=== PATIENT | female | born 1990 | race Caucasian/White ===

== ENCOUNTER 2016-10-17 13:40 | Emergency (ER) | payer MEDICAID ==
[2016-10-17 13:52] VITALS: BP 128/84; PULSE 78; RESP 16; TEMP 99; O2SAT 98
--- NOTE | 2016-10-17 15:17 | UCPHY ---
H & P Time Seen by Provider: 10/17/16 14:54 Patient Type: New HPI/ROS: CHIEF COMPLAINT: Vomiting, diarrhea HISTORY OF PRESENT ILLNESS: 26-year-old female presents to urgent care by private vehicle complaining of multiple episodes of vomiting and diarrhea since early Wednesday morning. Patient denies melena. Denies blood in her stool or blood in the emesis. Denies fevers or chills. No known ill contacts. No known contaminated food or water. No chest pain or difficulty breathing. No abdominal pain. Patient has been urinating normally today. She feels better today. She has not vomited since 6:00 a.m. today. She is requesting a note to be able to go back to work tomorrow. REVIEW OF SYSTEMS: Constitutional: No fever, no chills. Eyes: No double or blurry vision. ENT: No sore throat. Respiratory: No cough, no shortness of breath. Cardiac: No chest pain. Gastrointestinal: Vomiting, diarrhea. No abdominal pain. Genitourinary: No dysuria. Musculoskeletal: No neck or back pain. Skin: No rashes. Neurological: No headache. Past Medical/Surgical History: Negative Social History: Single and lives in [place]. She works at [employer] Smoking Status: Never smoked Physical Exam: General Appearance: Alert, no distress. 128/84, temperature 37.2. Nontoxic appearing. Eyes: Pupils equal and round. Extraocular motions are all intact. ENT: Mouth: Mucous membranes moist. Respiratory: No wheezing, rhonchi, or rales, lungs are clear to auscultation. Cardiovascular: Regular rate and rhythm. Gastrointestinal: Abdomen is soft and nontender, no masses, no rebound or guarding, bowel sounds normal. No CVA tenderness bilaterally. Neurological: Alert and oriented x 3, cranial nerves II through XII grossly intact Skin: Warm and dry, no rashes. Musculoskeletal: Nontender to palpate along the cervical, thoracic or lumbar spine. Neck is supple. Extremities: Full range of motion and no peripheral edema. Psychiatric: Patient is oriented X 3, there is no agitation. Constitutional: Initial Vital Signs Temperature (C) 37.2 C 10/17/16 13:46 Heart Rate 78 10/17/16 13:46 Respiratory Rate 16 10/17/16 13:46 Blood Pressure 128/84 H 10/17/16 13:46 O2 Sat (%) 98 10/17/16 13:46 O2 Delivery Mode Room Air Allergies/Adverse Reactions: apple Allergy (Intermediate, Verified 10/17/16 13:52) GI problems milk Allergy (Intermediate, Verified 10/17/16 13:52) GI problems Home Medications: Medication Instructions Recorded Citalopram 10/17/16 Ondansetron Odt [Zofran Odt] 4 mg PO Q4PRN #8 tab 10/17/16 Medical Decision Making ED Course/Re-evaluation: 26-year-old female presents with multiple episodes of vomiting and diarrhea. Clinically this patient does not appear ill. She has not vomited in nearly 12 hours. She is tolerating p.o. fluids. She will be discharged home with a few Zofran to take as needed if nausea returns. She does not have a fever. I feel that she is safe to go back to work. She will return if she develops recurring vomiting or fever or any other concerns. Differential Diagnosis: Including but not limited to viral gastroenteritis, dehydration, acute appendicitis, pyelonephritis, urinary tract infection, dehydration Departure - Departure Disposition: Home, Routine, Self-Care Clinical Impression: Gastroenteritis Condition: Good Instructions: Dehydration (ED), Gastroenteritis (ED) Additional Instructions: Clear liquids and slowly advance diet as tolerated. Zofran as needed for recurring nausea or vomiting. You are okay to go back to work as long as you have not been vomiting or had a fever within 24 hours. Referrals: Yesica Roe MD [Primary Care Provider] - As per Instructions Stand Alone Forms: Work Excuse Prescriptions: Ondansetron Odt [Zofran Odt] 4 mg PO Q4PRN #8 tab - PQRS PQRS Measurement: Not applicable
== END 2016-10-17 15:32 | disposition home or self-care (01) ==
LOC: CED 13:40
DX: R11.10 Vomiting, unspecified (principal); R19.7 Diarrhea, unspecified
CPT/HCPCS: 99203-PO; G0463-PO